=== PATIENT | female | born 1990 | race Caucasian/White ===

== ENCOUNTER 2016-07-22 06:42 | Emergency (ER) | payer BC ==
[2016-07-22 06:59] VITALS: TEMP 97.9
--- NOTE | 2016-07-22 07:04 | ED.PDOC ---
History of Present Illness - General Chief Complaint: Abdominal Pain Stated Complaint: spotting, 12 wks gestation Time Seen by Provider: 07/22/16 07:02 Source: patient Exam Limitations: no limitations - History of Present Illness Initial Comments: Ms. Susana Echevarria 26 y/o Ab3 presently 12 w EGA [id number] stated that she started having intermittent lower abdominal cramps this am with vaginal spotting.She had her initial care in [place] and moved back here in [place] has an Ob appointment on 07/26/16 in [place], [place]. Timing/Duration: this morning Quality: moderate, cramping, intermittent Onset Location: suprapubic Radiation: none Activites at Onset: physical activity Prior abdominal problems: none Sexual intercourse history: single partner Improving Factors: rest Worsening Factors: nothing Allergies/Adverse Reactions: Allergies NO KNOWN ALLERGY Allergy (Verified 06/17/15 01:19) Home Medications: Ambulatory Orders Humalog See Protocol SUBCU DAILY 06/03/14 Promethazine Tab [Phenergan Tablet] 25 mg PO Q6H #20 tab 06/16/15 Cephalexin [Keflex] 500 mg PO BID #20 cap 06/17/15 Novolin R 15 units SUBCU BID 06/17/15 Multivit-Min W/Fe-FA [Pre-Gregor Formula] 1 tab PO DAILY 06/17/15 Promethazine HCl 25 mg PO Q6HRS PRN #30 tab 07/22/16 Review of Systems - Review of Systems Constitutional: States: no symptoms reported EENTM: States: no symptoms reported Respiratory: States: no symptoms reported Cardiology: States: no symptoms reported Gastrointestinal/Abdominal: States: see HPI Genitourinary: States: no symptoms reported Musculoskeletal: States: no symptoms reported Skin: States: no symptoms reported Neurological: States: no symptoms reported Endocrine: States: no symptoms reported Hematologic/Lymphatic: States: no symptoms reported Past Medical History (General) - Patient Medical History Hx Seizures: No Hx Stroke: No Hx Dementia: No Hx Asthma: No Hx of COPD: No Hx Cardiac Disorders: No Hx Congestive Heart Failure: No Hx Pacemaker: No Hx Hypertension: No Hx Thyroid Disease: No Hx Diabetes: Yes Hx Gastroesophageal Reflux: No Hx Renal Disease: No Hx Cancer: No Hx of HIV: No Hx Hepatitis C: No Hx MRSA: No MRSA Source:: Wound Surgical History: cholecystectomy, other - c section - Vaccination History Hx Tetanus, Diphtheria Vaccination: Yes Hx Influenza Vaccination: No Hx Pneumococcal Vaccination: No Immunizations Up to Date: Yes - Social History Hx Tobacco Use: No Hx Chewing Tobacco Use: No Hx Alcohol Use: No Hx Substance Use: No Hx Substance Use Treatment: No Hx Depression: No Hx Physical Abuse: No Hx Emotional Abuse: No Hx Suspected Abuse: No - Activities of Daily Living Patient Lives Alone: No - family - Female History Patient is a Female of Child Bearing Age (10 -59 yrs old): Yes Hx Last Menstrual Period: 05/06/16 Patient : Yes Expected Date of Delivery:: 02/16/17 Hx Gestational Age: 11 - Triage Comment ED Triage Comment: 5th with 1 living child Family Medical History - Family History Father Family History: Unknown Name: Guillermo Loja Age (years): 52 Living Status: Still Living Hx Family Asthma: Yes - Mother Hx Family Congestive Heart Failure: No Hx Family Hypertension: No Hx Family Stroke: No Hx Cardiac Disease: No Hx Family Diabetes: Yes - Pt. Hx Family Cancer: No Hx Family;Other: colon cancer-mom Physical Exam - Physical Exam General Appearance: Alert, Comfortable, No apparent distress Eyes, Ears, Nose, Throat Exam: PERRL/EOMI, normal ENT inspection, TMs normal, pharynx normal Neck: non-tender, supple, normal inspection Cardiovascular/Respiratory: regular rate, rhythm, no M/R/G, normal peripheral pulses, normal breath sounds Gastrointestinal/Abdominal: normal bowel sounds, non tender, soft, no organomegaly Pelvic Exam: external exam normal, speculum exam normal, no cerv. motion tender , other - no bleeding noted cervical os ,cervix closed Back Exam: normal inspection, no CVA tenderness Extremity: normal range of motion, non-tender, normal inspection Neurologic: alert, normal mood/affect, oriented x 3 Skin Exam: normal color, warm/dry Lymphatic: no adenopathy Progress - Results/Orders Results/Orders: Laboratory Results WBC 6.8 K/mm3 (4.8-10.8) 07/22/16 07:35 RBC 4.67 M/mm3 (4.20-5.40) 07/22/16 07:35 Hgb 13.8 gm/dL (12.0-16.0) 07/22/16 07:35 Hct 41.7 % (36.0-47.0) 07/22/16 07:35 MCV 89.4 fl (81.0-99.0) 07/22/16 07:35 MCH 29.6 pg (27.0-31.0) 07/22/16 07:35 MCHC 33.1 g/dL (33.0-37.0) 07/22/16 07:35 RDW 13.9 % (11.5-14.5) 07/22/16 07:35 Plt Count 188 K/mm3 (130-400) 07/22/16 07:35 MPV 9.0 fl (7.40-10.4) 07/22/16 07:35 Absolute Neuts (auto) 4.70 K/uL (1.8-6.8) 07/22/16 07:35 Absolute Lymphs (auto) 1.30 K/uL (1.0-3.4) 07/22/16 07:35 Absolute Monos (auto) 0.60 K/uL (0.2-0.8) 07/22/16 07:35 Absolute Eos (auto) 0.20 K/uL (0.0-0.4) 07/22/16 07:35 Absolute Basos (auto) 0.00 K/uL (0.0-0.1) 07/22/16 07:35 Neutrophils % 69.1 % (42.0-78.0) 07/22/16 07:35 Lymphocytes % 18.8 % (20.0-50.0) L 07/22/16 07:35 Monocytes % 8.3 % (2.0-9.0) 07/22/16 07:35 Eosinophils % 3.2 % (1.0-5.0) 07/22/16 07:35 Basophils % 0.6 % (0.0-2.0) 07/22/16 07:35 Sodium 135 mmol/L (135-145) 07/22/16 07:35 Potassium 3.9 mmol/L (3.6-5.0) 07/22/16 07:35 Chloride 104 mmol/L (101-111) 07/22/16 07:35 Carbon Dioxide 22 mmol/L (21-31) 07/22/16 07:35 Anion Gap 12.9 (12-18) 07/22/16 07:35 BUN 13 mg/dL (7-18) 07/22/16 07:35 Creatinine < 0.40 mg/dL (0.6-1.3) L 07/22/16 07:35 BUN/Creatinine Ratio 32.0 (10-20) H 07/22/16 07:35 Random Glucose 86 mg/dL (70-105) 07/22/16 07:35 Serum Osmolality 269.5 mOsm/L (275-295) L 07/22/16 07:35 Calcium 8.7 mg/dL (8.4-10.2) 07/22/16 07:35 Beta HCG, Quant 03464.0 mIU/mL (0-4.9) H 07/22/16 07:35 Urine Color Yellow (Yellow) 07/22/16 07:48 Urine Appearance Sl cloudy (Clear) 07/22/16 07:48 Urine pH 6.0 (4.5-7.8) 07/22/16 07:48 Ur Specific [place] 1.020 (1.005-1.030) 07/22/16 07:48 Urine Protein 100 mg/dL H 07/22/16 07:48 Urine Glucose (UA) 500 mg/dL (Negative) H 07/22/16 07:48 Urine Ketones Trace mg/dL (NEGATIVE) 07/22/16 07:48 Urine Blood Small (Negative) H 07/22/16 07:48 Urine Nitrite Negative 07/22/16 07:48 Urine Bilirubin Negative (NEGATIVE) 07/22/16 07:48 Urine Urobilinogen 0.2 mg/dL (0.2-1.0) 07/22/16 07:48 Ur Leukocyte Esterase Negative (Negative) 07/22/16 07:48 Urine RBC 0-1 /hpf 07/22/16 07:48 Urine WBC 0 /hpf 07/22/16 07:48 Ur Epithelial Cells 3-5 /hpf 07/22/16 07:48 Urine Bacteria 0 07/22/16 07:48 Patient ABO/Rh A POSITIVE 07/22/16 07:35 Departure - Departure Clinical Impression: Abdominal cramps, Time of Disposition: 08:58 Disposition: Discharge to Home or Self Care Condition: Good Departure Forms: ED Discharge - Pt. Copy, Patient Portal Self Enrollment Instructions: Working During : Staying Healthy and Managing Stress, DI for Threatened , DI for Abdominal Pain -- Early Prescriptions: Promethazine HCl 25 mg PO Q6HRS PRN #30 tab PRN Reason: Abdominal Cramping Home Medications: Ambulatory Orders Humalog See Protocol SUBCU DAILY 06/03/14 Promethazine Tab [Phenergan Tablet] 25 mg PO Q6H #20 tab 06/16/15 Cephalexin [Keflex] 500 mg PO BID #20 cap 06/17/15 Novolin R 15 units SUBCU BID 06/17/15 Multivit-Min W/Fe-FA [Pre-Gregor Formula] 1 tab PO DAILY 06/17/15 Promethazine HCl 25 mg PO Q6HRS PRN #30 tab 07/22/16 Additional Instructions: NEED TO CALL UP OB IF SYMPTOMS WORSEN;EXCUSE FROM WORK 07/21-07/2016;RETURN TO WORK 07/24/2016.
[2016-07-22] MEDS ORDERED: SODIUM CHLORIDE 0.9% 1000ML 1,000 ML IVS ONE (07:05)
[2016-07-22] MEDS ORDERED: PROMETHAZINE HCL INJ 25 MG/ML VIAL IM ONE (07:44)
[2016-07-22 08:52] VITALS: BP 115/76; O2SAT 97
== END 2016-07-22 09:12 | disposition home or self-care (01) ==
LOC: ER 06:42
DX: O26.851 Spotting complicating pregnancy, first trimester (principal); R10.30 Lower abdominal pain, unspecified; Z3A.12 12 weeks gestation of pregnancy; O24.311 Unspecified pre-existing diabetes mellitus in pregnancy, first trimester; E11.9 Type 2 diabetes mellitus without complications; Z79.4 Long term (current) use of insulin; Z79.899 Other long term (current) drug therapy
CPT/HCPCS: 36415; 80048; 81001; 84702; 85025; 86900; 86901; J2550

== ENCOUNTER 2017-02-08 19:46 | Emergency (ER) | payer MEDICAID, OTHER ==
[2017-02-08] MEDS ORDERED: KETOROLAC TROMETHAMINE INJ 30 MG/ML VIAL IV ONE (20:03)
[2017-02-08] MEDS ORDERED: ONDANSETRON INJ 4 MG/2 ML VIAL IV ONE (20:03)
[2017-02-08] MEDS ORDERED: SODIUM CHLORIDE 0.9% 1000ML 1,000 ML IVS ONE (20:03)
--- NOTE | 2017-02-08 20:07 | ED.PDOC ---
History of Present Illness - General Chief Complaint: Problem Stated Complaint: left flank pain Time Seen by Provider: 02/08/17 20:03 Source: patient, RN notes reviewed, Vital Signs reviewed, family - Mother Exam Limitations: no limitations - History of Present Illness Initial Comments: Patient comes in with c/o L low back pain that radiates around to her groin that started ~ 30 minutes prior to arrival. + nausea and vomiting. Lots of urinary pressure but difficulty urinating. She was discharged for the hospital in [place] on 02/05/17, after episode of pancreatitis, DKA and UTI. She was on IV antibiotics in the hospital but was not discharged with any medications. Reports she had been feeling fine until ~19:30 today when she went to urinate and had a sudden onset of pain, nausea and vomiting. Timing/Duration: just prior to arrival Quality: severe Onset Location: left flank Radiation: groin Activites at Onset: other - urinating Sexual intercourse history: single partner - 1 month post- Improving Factors: nothing Worsening Factors: nothing Associated Symptoms: dysuria, lower back pain, nausea/vomiting, polyuria, urinary frequency Allergies/Adverse Reactions: Allergies NO KNOWN ALLERGY Allergy (Verified 06/17/15 01:19) Home Medications: Ambulatory Orders Humalog See Protocol SUBCU DAILY 06/03/14 Promethazine Tab [Phenergan Tablet] 25 mg PO Q6H #20 tab 06/16/15 Cephalexin [Keflex] 500 mg PO BID #20 cap 06/17/15 Novolin R 15 units SUBCU BID 06/17/15 Multivit-Min W/Fe-FA [Pre- Formula] 1 tab PO DAILY 06/17/15 Promethazine HCl 25 mg PO Q6HRS PRN #30 tab 07/22/16 Acetamin W/Cod #3 Tab [Tylenol w/CODEINE #3] 1 - 2 ea PO Q6HR PRN #15 tab Ondansetron Odt [Zofran ODT] 8 mg PO Q6HR PRN #15 tab 02/08/17 Review of Systems - Review of Systems Constitutional: States: chills, diaphoresis EENTM: States: no symptoms reported Respiratory: States: no symptoms reported Cardiology: States: no symptoms reported Gastrointestinal/Abdominal: States: abdominal pain - suprapubic, nausea, vomiting. Denies: constipation, diarrhea Genitourinary: States: see HPI, dysuria, frequency, pain Musculoskeletal: States: back pain - L low back Skin: States: no symptoms reported Neurological: States: no symptoms reported All other Systems: No Change from Baseline Past Medical History (General) - Patient Medical History Hx Seizures: No Hx Stroke: No Hx Dementia: No Hx Asthma: No Hx of COPD: No Hx Cardiac Disorders: No Hx Congestive Heart Failure: No Hx Pacemaker: No Hx Hypertension: No Hx Thyroid Disease: No Hx Diabetes: Yes Hx Gastroesophageal Reflux: No Hx Renal Disease: No Hx Cancer: No Hx of HIV: No Hx Hepatitis C: No Hx MRSA: No MRSA Source:: Wound - Vaccination History Hx Tetanus, Diphtheria Vaccination: Yes Hx Influenza Vaccination: No Hx Pneumococcal Vaccination: No - Social History Hx Tobacco Use: No Hx Chewing Tobacco Use: No Hx Alcohol Use: No Hx Substance Use: No Hx Substance Use Treatment: No Hx Depression: No Hx Physical Abuse: No Hx Emotional Abuse: No Hx Suspected Abuse: No - Female History Hx Last Menstrual Period: 05/06/16 Patient : Yes Expected Date of Delivery:: 02/16/17 Hx Gestational Age: 11 Family Medical History - Family History Father Family History: Unknown Name: Guillermo Loja Age (years): 52 Living Status: Still Living Hx Family Asthma: Yes - Mother Hx Family Congestive Heart Failure: No Hx Family Hypertension: No Hx Family Stroke: No Hx Cardiac Disease: No Hx Family Diabetes: Yes - Pt. Hx Family Cancer: No Hx Family;Other: colon cancer-mom Physical Exam - Physical Exam General Appearance: Alert, Ill Appearing, Well Developed, Well Groomed, Well Hydrated, Well Nourished Neck: supple Cardiovascular/Respiratory: regular rate, rhythm, no M/R/G, normal breath sounds , no respiratory distress Gastrointestinal/Abdominal: normal bowel sounds, soft, no organomegaly, no pulsatile mass, tenderness - suprapubic tenderness s/o rebound Extremity: non-tender, normal inspection Neurologic: alert, normal mood/affect, oriented x 3 Skin Exam: normal color, warm/dry Comments: Vital Signs 02/08/17 20:00 Temperature 98.1 F Pulse Rate [ 118 H Left] Respiratory 22 Rate Blood Pressure 143/82 [Left Arm] O2 Sat by Pulse 99 Oximetry Progress - Progress Progress: 02/08/17 20:[address] scans @ [place], will try and get reports. 02/08/17 20:51 Patient reports she is feeling much better after Toradol and Zofran. Symptoms and labs suggest a kidney stone. Still awaiting CT reports from recent hospitalization. 02/08/17 21:[address] unable to get CT reports from [place]. Discussed with patient and her mother. Evaluation is classic for renal colic. Will forgo additional imaging and treat symptomatically. Patient is in agreement with plan. Will d/c home with Rx for Tyl #3 and Zofran w/ urine strainer. Discussed ER warnings for worsening/uncontrolled symptoms. If does not pass a stone w/in 2 weeks will need follow up with Urologist. - Results/Orders Results/Orders: Laboratory Tests 02/08/17 02/08/17 02/08/17 19:55 19:55 19:55 WBC 8.1 RBC 3.89 L Hgb 10.8 L Hct 33.4 L MCV 85.8 MCH 27.7 MCHC 32.4 L RDW 17.6 H Plt Count 490 H MPV 8.2 Absolute Neuts (auto) 3.80 Absolute Lymphs (auto) 3.50 H Absolute Monos (auto) 0.30 Absolute Eos (auto) 0.40 Absolute Basos (auto) 0.10 Neutrophils % 47.0 Lymphocytes % 42.7 Monocytes % 4.2 Eosinophils % 4.7 Basophils % 1.4 Sodium 136 Potassium 4.1 Chloride 101 Carbon Dioxide 23 Anion Gap 16.1 BUN 20 H Creatinine 1.03 BUN/Creatinine Ratio 19.4 Random Glucose 288 H Serum Osmolality 285.1 Calcium 9.1 Total Bilirubin 0.2 AST 28 ALT 18 Alkaline Phosphatase 222 H Serum Total Protein 8.2 Albumin 3.3 Globulin 4.9 H Albumin/Globulin Ratio 0.7 L Amylase Lipase Urine Color Yellow Urine Appearance Clear Urine pH 7.0 Ur Specific Mona 1.015 Urine Protein 100 H Urine Glucose (UA) 500 H Urine Ketones Negative Urine Blood Small H Urine Nitrite Negative Urine Bilirubin Negative Urine Urobilinogen 0.2 Ur Leukocyte Esterase Negative Urine RBC 1-3 Urine WBC 0-1 Ur Epithelial Cells 3-5 Urine Bacteria Rare Serum Ketones 02/08/17 19:55 WBC RBC Hgb Hct MCV MCH MCHC RDW Plt Count MPV Absolute Neuts (auto) Absolute Lymphs (auto) Absolute Monos (auto) Absolute Eos (auto) Absolute Basos (auto) Neutrophils % Lymphocytes % Monocytes % Eosinophils % Basophils % Sodium Potassium Chloride Carbon Dioxide Anion Gap BUN Creatinine BUN/Creatinine Ratio Random Glucose Serum Osmolality Calcium Total Bilirubin AST ALT Alkaline Phosphatase Serum Total Protein Albumin Globulin Albumin/Globulin Ratio Amylase 116 H Lipase 281 H Urine Color Urine Appearance Urine pH Ur Specific Mona Urine Protein Urine Glucose (UA) Urine Ketones Urine Blood Urine Nitrite Urine Bilirubin Urine Urobilinogen Ur Leukocyte Esterase Urine RBC Urine WBC Ur Epithelial Cells Urine Bacteria Serum Ketones Negative Lipase improved from labs on 02/05/17 - was 352 Departure - Departure Clinical Impression: Renal colic on left side Time of Disposition: 21:34 Disposition: Discharge to Home or Self Care Condition: Good Departure Forms: ED Discharge - Pt. Copy, Patient Portal Self Enrollment Instructions: DI for Kidney Stones Diet: resume usual diet - Increase water intake Activity: ambulate only with walker Referrals: Herminio Khan MD [Primary Care Provider] - 1-2 Weeks Prescriptions: Acetamin W/Cod #3 Tab [Tylenol w/CODEINE #3] 1 - 2 ea PO Q6HR PRN #15 tab PRN Reason: Moderate To Severe Pain Ondansetron Odt [Zofran ODT] 8 mg PO Q6HR PRN #15 tab PRN Reason: Nausea/Vomiting Home Medications: Ambulatory Orders Humalog See Protocol SUBCU DAILY 06/03/14 Promethazine Tab [Phenergan Tablet] 25 mg PO Q6H #20 tab 06/16/15 Cephalexin [Keflex] 500 mg PO BID #20 cap 06/17/15 Novolin R 15 units SUBCU BID 06/17/15 Multivit-Min W/Fe-FA [Pre-Gregor Formula] 1 tab PO DAILY 06/17/15 Promethazine HCl 25 mg PO Q6HRS PRN #30 tab 07/22/16 Acetamin W/Cod #3 Tab [Tylenol w/CODEINE #3] 1 - 2 ea PO Q6HR PRN #15 tab Ondansetron Odt [Zofran ODT] 8 mg PO Q6HR PRN #15 tab 02/08/17
[2017-02-08 20:09] VITALS: TEMP 98.1; O2SAT 99
[2017-02-08] MEDS ORDERED: ONDANSETRON ODT (ER DISP) 8 MG TAB PO ONE (21:30)
[2017-02-08] MEDS ORDERED: ACETAMINOPHEN W/COD #3 TAB (ER Disp) PO ONE (21:30)
[2017-02-08 21:55] VITALS: BP 152/99
== END 2017-02-08 21:56 | disposition home or self-care (01) ==
LOC: ER 19:46
DX: N23 Unspecified renal colic (principal); E11.9 Type 2 diabetes mellitus without complications; Z79.4 Long term (current) use of insulin; Z79.899 Other long term (current) drug therapy
CPT/HCPCS: 36415; 80053; 81001; 82009; 82150; 83690; 85025; J1885; J2405; J7030

== ENCOUNTER 2017-04-26 06:31 | Emergency (ER) | payer SELFPAY ==
[2017-04-26] MEDS ORDERED: PROMETHAZINE HCL INJ 25 MG/ML VIAL IM ONE (06:57)
[2017-04-26] MEDS ORDERED: KETOROLAC TROMETHAMINE INJ 60 MG/2 ML VIAL IM ONE (06:57)
--- NOTE | 2017-04-26 06:57 | ED.PDOC ---
History of Present Illness - General Source: patient Exam Limitations: no limitations Additional Information: C/O R TEMPORAL GARCIA FOR PAST 1 WEEK. HAS BEEN INTERMITTENT AND RESPONDED TO EXCEDRIN BUT LAST NIGHT DID NOT GET BETTER. NO MIGRAINE HX. - History of Present Illness Timing/Duration: constant Severity: moderate Improving Factors: nothing Worsening Factors: nothing Associated Symptoms: nausea/vomiting <Facundo Sahu - Last Filed: 04/26/17 07:01> <Surya Obregon - Last Filed: 04/26/17 12:34> - General Chief Complaint: Headache Stated Complaint: headache Time Seen by Provider: 04/26/17 06:52 - History of Present Illness Allergies/Adverse Reactions: Allergies NO KNOWN ALLERGY Allergy (Verified 04/26/17 06:45) Home Medications: Ambulatory Orders Humalog See Protocol SUBCU DAILY 06/03/14 Promethazine Tab [Phenergan Tablet] 25 mg PO Q6H #20 tab 06/16/15 Cephalexin [Keflex] 500 mg PO BID #20 cap 06/17/15 Novolin R 15 units SUBCU BID 06/17/15 Multivit-Min W/Fe-FA [Pre-Gregor Formula] 1 tab PO DAILY 06/17/15 Promethazine HCl 25 mg PO Q6HRS PRN #30 tab 07/22/16 Acetamin W/Cod #3 Tab [Tylenol w/CODEINE #3] 1 - 2 ea PO Q6HR PRN #15 tab Ondansetron Odt [Zofran ODT] 8 mg PO Q6HR PRN #15 tab 02/08/17 Review of Systems - Review of Systems Constitutional: States: other - NO TRAUMA. Denies: chills, fever EENTM: Denies: blurred vision, ear pain, throat pain Respiratory: Denies: cough, short of breath Cardiology: Denies: chest pain, palpitations Gastrointestinal/Abdominal: Denies: abdominal pain, nausea, vomiting Genitourinary: States: no symptoms reported Musculoskeletal: Denies: back pain, neck pain Skin: States: no symptoms reported Neurological: States: headache. Denies: numbness, tingling, weakness Endocrine: States: no symptoms reported Hematologic/Lymphatic: States: no symptoms reported <Facundo Sahu - Last Filed: 04/26/17 07:01> Past Medical History (General) - Patient Medical History Hx Seizures: No Hx Stroke: No Hx Dementia: No Hx Asthma: No Hx of COPD: No Hx Cardiac Disorders: No Hx Congestive Heart Failure: No Hx Pacemaker: No Hx Hypertension: No Hx Thyroid Disease: No Hx Diabetes: Yes Hx Gastroesophageal Reflux: No Hx Renal Disease: No Hx Cancer: No Hx of HIV: No Hx Hepatitis C: No Hx MRSA: No MRSA Source:: Wound - Vaccination History Hx Tetanus, Diphtheria Vaccination: Yes Hx Influenza Vaccination: No Hx Pneumococcal Vaccination: No - Social History Hx Tobacco Use: No Hx Chewing Tobacco Use: No Hx Alcohol Use: No Hx Substance Use: No Hx Substance Use Treatment: No Hx Depression: No Hx Physical Abuse: No Hx Emotional Abuse: No Hx Suspected Abuse: No - Female History Hx Last Menstrual Period: 05/06/16 Patient : No Expected Date of Delivery:: 02/16/17 Hx Gestational Age: 11 <Facundo Sahu - Last Filed: 04/26/17 07:01> Family Medical History - Family History Father Family History: Unknown Name: Guillermo Loja Age (years): 52 Living Status: Still Living Hx Family Asthma: Yes - Mother Hx Family Congestive Heart Failure: No Hx Family Hypertension: No Hx Family Stroke: No Hx Cardiac Disease: No Hx Family Diabetes: Yes - Pt. Hx Family Cancer: No Hx Family;Other: colon cancer-mom <Facundo Sahu - Last Filed: 04/26/17 07:01> Physical Exam - Physical Exam General Appearance: Alert, No apparent distress Eye Exam: bilateral normal Ears, Nose, Throat: normal ENT inspection, normal pharynx Neck: non-tender, full range of motion, supple Respiratory: lungs clear, normal breath sounds Cardiovascular/Chest: regular rate, rhythm, no murmur Gastrointestinal/Abdominal: normal bowel sounds, non tender, soft, no organomegaly Back Exam: normal inspection, no CVA tenderness Extremity: normal range of motion, non-tender Neurologic: no motor/sensory deficits, alert Skin Exam: normal color, warm/dry Lymphatic: no adenopathy <Facundo Sahu - Last Filed: 04/26/17 07:01> Progress - Progress Progress: 04/26/17 08:03 PT REPORTS IMPROVEMENT IN NAUSEA AFTER PHENERGAN BUT REPORTS NO IMPROVEMENT IN HEADACHE AFTER IM TORADOL. WHEN I INQUIRED ABOUT A HISTORY OF HTN, PT ADDITIONALLY GIVES HISTORY OF RECENT PRE-ECLAMPSIA DURING AND AFTER CHILDBIRTH IN DECEMBER. PT REPORTS THAT LABS WERE NORMAL DURING HER INITIAL FOLLOW UP AFTER DELIVERY BUT STATES SHE HAS SINCE MOVED AND HAS NOT SEEN PHYSICIAN AGAIN. PT IS NOT ON ANTIHYPERTENSIVE AND IS NOT MONITORING BP AT HOME. DECISION MADE AT THIS TIME TO ORDER LABS,CT HEAD, AND IV MEDICATION FOR BP AND HEADACHE. REPEAT BP WAS 157/101 04/26/17 10:00 PT REPORTS SOME IMPROVEMENT IN HEADACHE. CT FINDINGS DISCUSSED. BP NOW 130/88 AFTER IV HYDRALAZINE. WILL ORDER MRI. 04/26/17 11:44 MRI FINDINGS DISCUSSED WITH PATIENT. SHE AGREES WITH PLAN TO TRANSFER TO [facility] FOR FURTHER MANAGEMENT. 04/26/17 12:05 PT WANTING TO SIGN OUT AMA, DUE TO A COURT DATE IN [place] TOMORROW. I ADVISED PATIENT THAT THIS IS A SERIOUS MATTER THAT COULD RESULT IN OR PERMANENT DISABILITY IF NOT TREATED. PT STATES SHE WILL CALL HER MOTHER TO DISCUSS. - Results/Orders Results/Orders: 04/26/17 07:09 UA [URINALYSIS] Stat 04/26/17 08:00 Telemetry .ONCE Sodium Chloride 0.9% (Flush) [Saline Flush Syringe] 10 ml IV PRN PRN EKG STAT 04/26/17 09:48 Brain w/oContrast [MRI] Stat MRA Head and/or Neck [MRI] Stat 04/26/17 09:49 Hold Metformin x 48Hrs [id number] 04/27/17 08:00 EKG STAT Laboratory Results - last 24 hr 04/26/17 04/26/17 04/26/17 07:15 08:30 08:30 WBC 7.2 RBC 4.73 Hgb 13.3 Hct 39.6 MCV 83.8 MCH 28.1 MCHC 33.6 RDW 14.2 Plt Count 284 MPV 8.2 Absolute Neuts (auto) 4.00 Absolute Lymphs (auto) 2.50 Absolute Monos (auto) 0.40 Absolute Eos (auto) 0.20 Absolute Basos (auto) 0.10 Neutrophils % 55.2 Lymphocytes % 35.2 Monocytes % 5.8 Eosinophils % 3.0 Basophils % 0.8 PT INR PTT (SP) Sodium 137 Potassium 3.9 Chloride 105 Carbon Dioxide 24 Anion Gap 11.9 L BUN 17 Creatinine 0.61 BUN/Creatinine Ratio 27.9 H POC Glucose 88 Random Glucose 136 H Serum Osmolality 277.4 Calcium 9.0 Total Bilirubin 0.2 AST 40 ALT 25 Alkaline Phosphatase 97 Creatine Kinase 42 CK-MB (CK-2) 1.4 CK-MB (CK-2) % Not Reportable Troponin I < 0.02 Serum Total Protein 7.9 Albumin 3.7 Globulin 4.2 H Albumin/Globulin Ratio 0.9 L Serum HCG, Qual 04/26/17 04/26/17 08:30 08:30 WBC RBC Hgb Hct MCV MCH MCHC RDW Plt Count MPV Absolute Neuts (auto) Absolute Lymphs (auto) Absolute Monos (auto) Absolute Eos (auto) Absolute Basos (auto) Neutrophils % Lymphocytes % Monocytes % Eosinophils % Basophils % PT 9.6 INR 0.850 PTT (SP) 33.1 Sodium Potassium Chloride Carbon Dioxide Anion Gap BUN Creatinine BUN/Creatinine Ratio POC Glucose Random Glucose Serum Osmolality Calcium Total Bilirubin AST ALT Alkaline Phosphatase Creatine Kinase CK-MB (CK-2) CK-MB (CK-2) % Troponin I Serum Total Protein Albumin Globulin Albumin/Globulin Ratio Serum HCG, Qual Negative - EKG/XRAY/CT EKG: Sinus - @92BPM, NL INTERVALS, RAD, no ST T wave changes - NO OLD EKG FOR COMPARISON <Surya Obreogn - Last Filed: 04/26/17 12:34> Departure <Facundo Sahu - Last Filed: 04/26/17 07:01> - Departure Time of Disposition: 12:08 <Surya Obregon - Last Filed: 04/26/17 12:34> - Departure Clinical Impression: Hypertensive encephalopathy syndrome, Uncontrolled hypertension Disposition: Transfer to Hospital Condition: Fair Departure Forms: ED Discharge - Pt. Copy, Patient Portal Self Enrollment Instructions: DI for Headache Referrals: Herminio Khan MD [Primary Care Provider] - 1-2 Weeks Home Medications: Ambulatory Orders Humalog See Protocol SUBCU DAILY 06/03/14 Promethazine Tab [Phenergan Tablet] 25 mg PO Q6H #20 tab 06/16/15 Cephalexin [Keflex] 500 mg PO BID #20 cap 06/17/15 Novolin R 15 units SUBCU BID 06/17/15 Multivit-Min W/Fe-FA [Pre-Gregor Formula] 1 tab PO DAILY 06/17/15 Promethazine HCl 25 mg PO Q6HRS PRN #30 tab 07/22/16 Acetamin W/Cod #3 Tab [Tylenol w/CODEINE #3] 1 - 2 ea PO Q6HR PRN #15 tab Ondansetron Odt [Zofran ODT] 8 mg PO Q6HR PRN #15 tab 02/08/17 Transfer to Outside Facility - Transfer Information Accepting Provider:: DR. POLLARD Accepting Facility: [facility] Reason for Transfer: required specialist not available - NEUROLOGIST <Surya Obregon - Last Filed: 04/26/17 12:34>
[2017-04-26] MEDS ORDERED: SODIUM CHLORIDE 0.9% (FLUSH) 10 ML SYG IV PRN (08:00)
[2017-04-26] MEDS ORDERED: hydrALAZINE HCl 20 MG/ML VIAL IV ONE (08:01)
[2017-04-26] MEDS ORDERED: METOCLOPRAMIDE HCL INJ 10 MG/2 ML VIAL IV ONE (08:01)
[2017-04-26] MEDS ORDERED: SODIUM CHLORIDE 0.9% 1000ML 1,000 ML IVS ONE (08:02)
[2017-04-26] MEDS ORDERED: diphenhydrAMINE HCL 50 MG/ML VIAL IV ONE (08:02)
--- NOTE | 2017-04-26 09:50 | CT ---
EXAM DESCRIPTION: Head CLINICAL HISTORY: 27-year-old, female, headache, hypertension. COMPARISON: None available TECHNIQUE: Multiple axial images of the head without contrast.tab FINDINGS: There is no CT evidence of intracranial hemorrhage, mass effect, or acute cortical infarction. There is mild symmetric prominence of the lateral ventricles without transependymal CSF flow. Sulcation pattern is within normal limits. There is decreased attenuation within the martínez-white junction of the right parietal lobe. There are no abnormal extra-axial fluid collections. No depressed skull fractures. The visualized paranasal sinuses and the mastoids are clear. IMPRESSION: Decreased attenuation within the martínez-white junction of the right parietal lobe. This may be secondary to acute ischemia from right MCA territory distribution versus other processes causing edema in this region. Further evaluation with brain MRI is recommended. Findings were discovered at 0940 hours and reported to Dr. Surya Obergon via telephone by myself at 0945 hours on 04/26/2017. Electronically signed by: Gutierrez Thomas MD 04/26/2017 9:49 AM [facility]
--- NOTE | 2017-04-26 11:50 | MRI ---
EXAM DESCRIPTION: Brain w/oContrast. MRI CLINICAL HISTORY: Abnormal CT findings today, headache x 1 week right more than left. Preeclampsia during recent . Significant hypertension today. COMPARISON: Noncontrast MRA of the brain on this visit. TECHNIQUE: Multiplanar, multiple conventional MRI sequences without contrast. FINDINGS: Bilateral foci of bright FLAIR and T2-weighted signal in the martínez-white matter junctions of the occipital lobes slightly more prominent on the left. Bilaterally symmetric smaller lesions in the parietal lobes. Bilaterally symmetric frontal lobe lesions are smaller than the parietal lobe lesions. No hemorrhage, no mass effect. Normal signal in the bilateral basal ganglia. No hemorrhage, no cerebral edema, no mass-effect. Normal signal in the brainstem and cerebellar hemispheres. No hemorrhage, no cerebral edema, no mass-effect. Concordance of the diffusion and non-diffusion sequences with no diffusion restriction. Cortical sulci, ventricles, and other CSF spaces, and the subdural spaces are normally configured for patients age. No effacement or displacement. No midline shift. No extra-axial hemorrhage. Normal flow signal void in the venous sinuses. IACs are symmetric bilaterally. Minimal edema/fluid in the gravity dependent cells of the right mastoid air cells. Left side is unremarkable. Contour of the cerebellopontine angles is unremarkable. Pituitary gland occupies most of the sella. Base of the cerebellar tonsils is tented inferiorly and approximately 2 mm below the foramen magnum. Mucosal thickening in the ethmoid air cells and right maxillary antrum; otherwise unremarkable paranasal sinuses. The bony calvarium is intact. IMPRESSION: 1. Bilateral edema like lesions in the martínez-white matter junctions in the occipital lobes more prominent in the lesions in the parietal lobes which are more prominent than the lesions in the frontal lobes. 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 Another less likely etiologies would be hypoglycemia, acute bilateral diffuse cerebral ischemia/infarction (not likely with normal diffusion study), thrombotic microangiopathy disease, and vasculitis (not seen on MRA study). No intra-axial or extra-axial hemorrhage mass effect or midline shift. 2. No lesions in the basal ganglia or brainstem or cerebellar hemispheres. Normal noncontrast diffusion study, with ischemia/infarction very unlikely. 3. Mild chronic paranasal sinusitis. Right mastoid sinusitis. CRITICAL COMMUNICATION: The critical value was discussed directly by phone with Dr. Surya Obregon at approximately 1125 hours, on April 26, 2017. Electronically signed by: Ramesh Nixon MD 04/26/2017 11:49 AM [facility]
--- NOTE | 2017-04-26 12:05 | MRI ---
EXAM DESCRIPTION: MRA Head and/or Neck: MRI. CLINICAL HISTORY: abnormal CT findings, headache x1 week, significant hypertension today. Preeclampsia during recent . COMPARISON: None. TECHNIQUE: 3D [id number] thin-section axial acquisitions through the base of the skull and the tribe Talavera. Non contrast. MIP reconstructions. FINDINGS: Minimal narrowing of the distal right vertebral artery beginning at the level of the base of the right cerebellar hemisphere anteriorly joins the left vertebral artery to form the basilar artery. No definite thrombus or mass effect. Smooth borders of the vessel. Left vertebral artery is slightly dominant. Vessels originating from the vertebral arteries and basilar artery are unremarkable. Normal bifurcation of the basilar artery. Bilateral posterior communicating arteries are present. Proximal left posterior cerebral artery is larger than the contralateral right artery. No aneurysm, no stenosis, no mass effect, no vasculitis. Bilateral ICAs appear symmetric and at the base of the skull and intracranial. Bilateral proximal anterior cerebral and middle cerebral arteries are symmetric in major branches originating from these vessels are unremarkable. Bilateral posterior communicating arteries are visualized. No aneurysms, no stenoses, no mass effect, no vasculitis. Cavum septum pellucidum and cavum septum vergae which is a normal variant of the midline brain. IMPRESSION: 1. Narrowing of the distal right vertebral artery which is interpreted to be clinically significant and not due to vasculitis, thrombosis, or mass effect. Otherwise unremarkable study. 2. 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 CRITICAL COMMUNICATION: The critical value was discussed directly by phone with Dr. Surya Obregon at approximately 1125 hours, on April 26, 2017. Electronically signed by: Ramesh Nixon MD 04/26/2017 12:03 PM [facility]
[2017-04-26 14:41] VITALS: BP 153/96; TEMP 97.3; O2SAT 97
== END 2017-04-26 14:20 | disposition short-term general hospital (02) ==
LOC: ER 06:31
DX: I67.4 Hypertensive encephalopathy (principal); E11.9 Type 2 diabetes mellitus without complications; Z79.4 Long term (current) use of insulin; Z79.899 Other long term (current) drug therapy
CPT/HCPCS: 36415; 36416; 70450; 70544; 70551; 80053; 82550; 82553; 82948; 84484; 84703; 85025; 85610; 85730; 93005; J0360; J1200; J1885; J2550; J2765; J7030

== ENCOUNTER 2017-05-18 14:24 | Emergency (ER) | payer SELFPAY ==
[2017-05-18] MEDS ORDERED: METOCLOPRAMIDE HCL INJ 10 MG/2 ML VIAL IV ONE (14:44)
[2017-05-18] MEDS ORDERED: diphenhydrAMINE HCL 50 MG/ML VIAL IV ONE (14:44)
[2017-05-18] MEDS ORDERED: SODIUM CHLORIDE 0.9% 1000ML 1,000 ML IVS ONE (14:44)
[2017-05-18] MEDS ORDERED: KETOROLAC TROMETHAMINE INJ 30 MG/ML VIAL IV ONE (14:44)
[2017-05-18 14:47] VITALS: TEMP 96
[2017-05-18] MEDS ORDERED: METOCLOPRAMIDE HCL INJ 10 MG/2 ML VIAL ONE (15:48)
[2017-05-18] MEDS ORDERED: diphenhydrAMINE HCL 50 MG/ML VIAL ONE (15:48)
[2017-05-18] MEDS ORDERED: KETOROLAC TROMETHAMINE INJ 30 MG/ML VIAL ONE (15:48)
--- NOTE | 2017-05-18 17:05 | ED.PDOC ---
History of Present Illness - General Chief Complaint: Headache Stated Complaint: headache Time Seen by Provider: 05/18/17 14:26 Source: patient, RN notes reviewed, Vital Signs reviewed Additional Information: Migraine GARCIA - right sided. 03/01 pain. No focal neuro deficits. Similar to previous migraine GARCIA> - History of Present Illness Timing/Duration: 24 hours Quality: moderate Head Injury Location: frontal Recent Head Trauma: occasional headaches Improving Factors: nothing Worsening Factors: nothing Associated Symptoms: denies symptoms Allergies/Adverse Reactions: Allergies NO KNOWN ALLERGY Allergy (Verified 04/26/17 06:45) Home Medications: Ambulatory Orders Humalog See Protocol SUBCU DAILY 06/03/14 Promethazine Tab [Phenergan Tablet] 25 mg PO Q6H #20 tab 06/16/15 Cephalexin [Keflex] 500 mg PO BID #20 cap 06/17/15 Novolin R 15 units SUBCU BID 06/17/15 Multivit-Min W/Fe-FA [Pre- Formula] 1 tab PO DAILY 06/17/15 Promethazine HCl 25 mg PO Q6HRS PRN #30 tab 07/22/16 Acetamin W/Cod #3 Tab [Tylenol w/CODEINE #3] 1 - 2 ea PO Q6HR PRN #15 tab Ondansetron Odt [Zofran ODT] 8 mg PO Q6HR PRN #15 tab 02/08/17 Review of Systems - Review of Systems Constitutional: States: no symptoms reported EENTM: States: no symptoms reported, see HPI Respiratory: States: no symptoms reported Cardiology: States: no symptoms reported Gastrointestinal/Abdominal: States: no symptoms reported Genitourinary: States: no symptoms reported Musculoskeletal: States: no symptoms reported Skin: States: no symptoms reported Neurological: States: see HPI, headache Endocrine: States: no symptoms reported Hematologic/Lymphatic: States: no symptoms reported Past Medical History (General) - Patient Medical History Hx Seizures: No Hx Stroke: No Hx Dementia: No Hx Asthma: No Hx of COPD: No Hx Cardiac Disorders: No Hx Congestive Heart Failure: No Hx Pacemaker: No Hx Hypertension: No Hx Thyroid Disease: No Hx Diabetes: Yes Hx Gastroesophageal Reflux: No Hx Renal Disease: No Hx Cancer: No Hx of HIV: No Hx Hepatitis C: No Hx MRSA: No MRSA Source:: Wound Surgical History: other - Vaccination History Hx Tetanus, Diphtheria Vaccination: Yes Hx Influenza Vaccination: No Hx Pneumococcal Vaccination: No - Social History Hx Tobacco Use: No Hx Chewing Tobacco Use: No Hx Alcohol Use: No Hx Substance Use: No Hx Substance Use Treatment: No Hx Depression: No Hx Physical Abuse: No Hx Emotional Abuse: No Hx Suspected Abuse: No - Female History Hx Last Menstrual Period: 05/06/16 Patient : No Expected Date of Delivery:: 02/16/17 Hx Gestational Age: 11 Family Medical History - Family History Father Family History: Unknown Name: Guillermo Loja Age (years): 52 Living Status: Still Living Hx Family Asthma: Yes - Mother Hx Family Congestive Heart Failure: No Hx Family Hypertension: No Hx Family Stroke: No Hx Cardiac Disease: No Hx Family Diabetes: Yes - Pt. 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 Pt stable for d/c home. Departure - Departure Clinical Impression: Migraine Qualifiers: Migraine type: without aura Status migrainosus presence: without status migrainosus Intractability: intractable Qualified Code(s): G43.019 - Migraine without aura, intractable, without status migrainosus Time of Disposition: 17:20 Disposition: Discharge to Home or Self Care Condition: Fair Departure Forms: ED Discharge - Pt. Copy, Patient Portal Self Enrollment Referrals: Herminio Khan MD [Primary Care Provider] - 1-2 Weeks Home Medications: Ambulatory Orders Humalog See Protocol SUBCU DAILY 06/03/14 Promethazine Tab [Phenergan Tablet] 25 mg PO Q6H #20 tab 06/16/15 Cephalexin [Keflex] 500 mg PO BID #20 cap 06/17/15 Novolin R 15 units SUBCU BID 06/17/15 Multivit-Min W/Fe-FA [Pre- Formula] 1 tab PO DAILY 06/17/15 Promethazine HCl 25 mg PO Q6HRS PRN #30 tab 07/22/16 Acetamin W/Cod #3 Tab [Tylenol w/CODEINE #3] 1 - 2 ea PO Q6HR PRN #15 tab Ondansetron Odt [Zofran ODT] 8 mg PO Q6HR PRN #15 tab 02/08/17 Additional Instructions: No work for 48 hours. Rest. Stay well hydrated.
[2017-05-18 17:34] VITALS: BP 133/84; O2SAT 98
== END 2017-05-18 17:28 | disposition home or self-care (01) ==
LOC: ER 14:24
DX: G43.019 Migraine without aura, intractable, without status migrainosus (principal); E11.9 Type 2 diabetes mellitus without complications; Z79.4 Long term (current) use of insulin; Z79.899 Other long term (current) drug therapy
CPT/HCPCS: J1200; J1885; J2765; J7030

== ENCOUNTER 2017-10-10 09:47 | Emergency (ER) | payer OTHER, SELFPAY ==
[2017-10-10] MEDS ORDERED: SODIUM CHLORIDE 0.9% (FLUSH) 10 ML SYG IV PRN (10:35)
[2017-10-10] MEDS ORDERED: IPRATROPIUM/ALBUTEROL 3 ML VIAL INH ONE (10:35)
[2017-10-10] MEDS ORDERED: BENZONATATE PERLES 100 MG CAP PO ONE (10:36)
[2017-10-10 10:57] VITALS: O2SAT 100
--- NOTE | 2017-10-10 10:59 | ED.PDOC ---
History of Present Illness - General Chief Complaint: Respiratory Problem Stated Complaint: cough x4 weeks Time Seen by Provider: 10/10/17 10:22 Source: patient Exam Limitations: no limitations - History of Present Illness Comments: PT REPORTS 4 WEEK HISTORY OF COUGH, PLEURITIC CHEST PAIN, AND SOB. PT DENIES FEVER OR CHILLS. PT REPORTS THIS IS THE FIRST TIME SHE IS SEEKING MEDICAL ATTENTION FOR THIS COUGH. PT REPORTS COUGHING FITS WITH NEAR SYNCOPAL EPISODES. Timing/Duration: getting worse Cough Quality/Degree: severe Possible Cause: no prior episodes Improving Factors: nothing Worsening Factors: nothing Associated Symptoms: chest pain/soreness, cough, dizziness, lightheadedness, shortness of breath, sore throat Allergies/Adverse Reactions: Allergies NO KNOWN ALLERGY Allergy (Verified 04/26/17 06:45) Home Medications: Ambulatory Orders Humalog See Protocol SUBCU DAILY 06/03/14 Albuterol Sulfate Nebs [Proventil Nebs] 2.5 mg INH Q4HR PRN #90 vial 10/10/17 Azithromycin Tab [Zithromax] 250 mg PO QD #4 tab 10/10/17 Benzonatate Perles [Tessalon Perles] 200 mg PO TID PRN #30 cap 10/10/17 Insulin Glargine [Lantus Solostar] 18 unit SC BEDTIME 10/10/17 Prednisone 50 mg PO DAILY 4 Days #4 tab 10/10/17 Review of Systems - Review of Systems Constitutional: Denies: chills, fever EENTM: Denies: double vision, nose congestion Respiratory: States: cough, short of breath Cardiology: States: chest pain. Denies: palpitations Gastrointestinal/Abdominal: Denies: nausea, vomiting Genitourinary: Denies: dysuria, frequency Musculoskeletal: Denies: joint pain, joint swelling Skin: Denies: dryness, lesions Neurological: Denies: headache, numbness Endocrine: States: no symptoms reported Hematologic/Lymphatic: States: no symptoms reported Past Medical History (General) - Patient Medical History Hx Seizures: No Hx Stroke: No Hx Dementia: No Hx Asthma: No Hx of COPD: No Hx Cardiac Disorders: No Hx Congestive Heart Failure: No Hx Pacemaker: No Hx Hypertension: No Hx Thyroid Disease: No Hx Diabetes: Yes Hx Gastroesophageal Reflux: No Hx Renal Disease: No Hx Cancer: No Hx of HIV: No Hx Hepatitis C: No Hx MRSA: No MRSA Source:: Wound Surgical History: other - Vaccination History Hx Tetanus, Diphtheria Vaccination: Yes Hx Influenza Vaccination: No Hx Pneumococcal Vaccination: No - Social History Hx Tobacco Use: No Hx Chewing Tobacco Use: No Hx Alcohol Use: No Hx Substance Use: No Hx Substance Use Treatment: No Hx Depression: No Hx Physical Abuse: No Hx Emotional Abuse: No Hx Suspected Abuse: No - Female History Patient is a Female of Child Bearing Age (10 -59 yrs old): Yes Hx Last Menstrual Period: 05/06/16 Patient : No Expected Date of Delivery:: 02/16/17 Hx Gestational Age: 11 Family Medical History - Family History Father Family History: Unknown Name: Guillermo Loja Age (years): 52 Living Status: Still Living Hx Family Asthma: Yes - Mother Hx Family Congestive Heart Failure: No Hx Family Hypertension: No Hx Family Stroke: No Hx Cardiac Disease: No Hx Family Diabetes: Yes - Pt. Hx Family Cancer: No Hx Family;Other: colon cancer-mom Physical Exam - Physical Exam General Appearance: Alert, Well Developed, Well Groomed, Well Hydrated Eye Exam: bilateral normal ENT Exam: normal ENT inspection, hearing grossly normal Neck: non-tender, full range of motion Respiratory: chest non-tender, no respiratory distress, other - COARSE BREATH SOUND BILATERALLY Cardiovascular/Chest: no murmur, tachycardia Gastrointestinal/Abdominal: non tender, soft Neurologic: alert, normal mood/affect, oriented x 3 Skin Exam: normal color, warm/dry Progress - Progress Progress: 10/10/17 11:38 PT REPORTS SIGNIFICANT IMPROVEMENT IN DYSPNEA AFTER DUONEB IN THE ED. LABS AND DIAGNOSTICS DISCUSSED. - Results/Orders Results/Orders: Laboratory Tests 10/10/17 10/10/17 10/10/17 11:05 11:05 11:05 WBC 10.3 RBC 4.61 Hgb 13.2 Hct 39.2 MCV 85.0 MCH 28.6 MCHC 33.6 RDW 13.4 Plt Count 301 MPV 8.6 Absolute Neuts (auto) 6.90 H Absolute Lymphs (auto) 2.40 Absolute Monos (auto) 0.50 Absolute Eos (auto) 0.40 Absolute Basos (auto) 0.10 Neutrophils % 67.4 Lymphocytes % 23.5 Monocytes % 5.0 Eosinophils % 3.6 Basophils % 0.5 D-Dimer, Quantitative < 230 Sodium 134 L Potassium 4.1 Chloride 102 Carbon Dioxide 23 Anion Gap 13.1 BUN 21 H Creatinine 0.80 BUN/Creatinine Ratio 26.3 H Random Glucose 305 H Serum Osmolality 282.7 Calcium 9.1 Total Bilirubin 0.3 AST 19 ALT 12 Alkaline Phosphatase 92 Serum Total Protein 7.6 Albumin 3.6 Globulin 4.0 H Albumin/Globulin Ratio 0.9 L Serum HCG, Qual 10/10/17 11:05 WBC RBC Hgb Hct MCV MCH MCHC RDW Plt Count MPV Absolute Neuts (auto) Absolute Lymphs (auto) Absolute Monos (auto) Absolute Eos (auto) Absolute Basos (auto) Neutrophils % Lymphocytes % Monocytes % Eosinophils % Basophils % D-Dimer, Quantitative Sodium Potassium Chloride Carbon Dioxide Anion Gap BUN Creatinine BUN/Creatinine Ratio Random Glucose Serum Osmolality Calcium Total Bilirubin AST ALT Alkaline Phosphatase Serum Total Protein Albumin Globulin Albumin/Globulin Ratio Serum HCG, Qual Negative - EKG/XRAY/CT EKG: Sinus - @93bpm, NL INTERVALS, NL AXIS, no ST T wave changes, Unchanged from - 04/26/17 XRAY: chest - NO ACUTE FINDINGS PER RAD Departure - Departure Clinical Impression: Acute bronchitis, Tobacco abuse Time of Disposition: 11:48 Disposition: Discharge to Home or Self Care Condition: Good Departure Forms: ED Discharge - Pt. Copy, Patient Portal Self Enrollment Instructions: DI for Acute Bronchitis Diet: resume usual diet Activity: increase activity as tolerated Referrals: [facility] [Provider Group] - 1-5 Days Prescriptions: Albuterol Sulfate Nebs [Proventil Nebs] 2.5 mg INH Q4HR PRN #90 vial PRN Reason: Shortness Of Breath/Wheezing Azithromycin Tab [Zithromax] 250 mg PO QD #4 tab Benzonatate Perles [Tessalon Perles] 200 mg PO TID PRN #30 cap PRN Reason: Cough Prednisone 50 mg PO DAILY 4 Days #4 tab Home Medications: Ambulatory Orders Humalog See Protocol SUBCU DAILY 06/03/14 Albuterol Sulfate Nebs [Proventil Nebs] 2.5 mg INH Q4HR PRN #90 vial 10/10/17 Azithromycin Tab [Zithromax] 250 mg PO QD #4 tab 10/10/17 Benzonatate Perles [Tessalon Perles] 200 mg PO TID PRN #30 cap 10/10/17 Insulin Glargine [Lantus Solostar] 18 unit SC BEDTIME 10/10/17 Prednisone 50 mg PO DAILY 4 Days #4 tab 10/10/17
--- NOTE | 2017-10-10 11:32 | RAD ---
EXAM DESCRIPTION: Chest,2 Views CLINICAL HISTORY: cough/sob COMPARISON: Chest x-ray 04/11/2007. TECHNIQUE: PA, lateral views. FINDINGS: Lungs: Well-inflated and no infiltrate. Pleural spaces: No effusion or pneumothorax bilaterally. Heart: Normal size. Pulmonary Vascularity: Not increased. Mediastinum: Not widened. Aorta: Unremarkable. Bony Thorax/Spine: No acute bony thoracic abnormalities. IMPRESSION: No radiographic evidence of acute cardiopulmonary disease. Stable since March 2007. Electronically signed by: Ramesh Nixon MD 10/10/2017 11:31 AM CDT
[2017-10-10] MEDS ORDERED: methylPREDNISolone SODIUM SUC 125 MG/2 ML VIAL IV ONE (11:37)
[2017-10-10] MEDS ORDERED: AZITHROMYCIN 250 MG TAB PO ONE (11:37)
[2017-10-10 12:21] VITALS: BP 106/77; TEMP 98.2
== END 2017-10-10 12:21 | disposition home or self-care (01) ==
LOC: ER 09:47
DX: J20.9 Acute bronchitis, unspecified (principal); F17.200 Nicotine dependence, unspecified, uncomplicated; E11.9 Type 2 diabetes mellitus without complications; Z79.4 Long term (current) use of insulin
CPT/HCPCS: 36415; 71046; 80053; 84703; 85025; 85379; 87040; 93005; 94640; 94760; J2930; J7620; Q0144

== ENCOUNTER 2017-12-13 08:45 | Emergency (ER) | payer OTHER ==
--- NOTE | 2017-12-13 09:34 | ED.PDOC ---
History of Present Illness - General Chief Complaint: Headache Time Seen by Provider: 12/13/17 09:31 Source: patient Exam Limitations: no limitations - History of Present Illness Initial Comments: 3 D GARCIA, NAUSEA, WEAKNESS, DECR PO, LEG CRAMPS, LIGHT HEADED WHEN WALKS. EMESIS IF EATS; IS ABLE TO DRINK SMALL AMOUNTS. HEAVY PERIOD X 2 D. NO ABD PAIN. BS 565 LAST NOC. 90 THIS AM. HAS IDDM TYPE 1. GARCIA SIMILAR TO OTHER MIGRAINES. MORE FRONTAL, BL TODAY. Timing/Duration: waxing and waning Quality: moderate, pressure Recent Head Trauma: chronic headaches Improving Factors: nothing Worsening Factors: nothing Associated Symptoms: fatigue, nausea/vomiting Allergies/Adverse Reactions: Allergies NO KNOWN ALLERGY Allergy (Verified 04/26/17 06:45) Home Medications: Ambulatory Orders Humalog See Protocol SUBCU DAILY 06/03/14 Insulin Glargine [Lantus Solostar] 18 unit SC BEDTIME 10/10/17 Ondansetron [Zofran Odt] 4 mg SL TID PRN #20 tab 12/13/17 Sulfa/Trimeth 800/160 (Ds) Tab [Bactrim DS Tab] 1 unit PO BID #6 tab 12/13/17 Review of Systems - Review of Systems Constitutional: States: weakness. Denies: chills, fever EENTM: Denies: ear pain, nose congestion Respiratory: Denies: cough, short of breath Cardiology: Denies: chest pain, palpitations Gastrointestinal/Abdominal: States: nausea, vomiting - IF TRIES TO EAT. IS ABLE TO DRINK. . Denies: abdominal pain, constipation, diarrhea Genitourinary: Denies: dysuria, frequency Musculoskeletal: Denies: back pain, joint pain, neck pain Skin: Denies: lesions, rash Neurological: States: headache - BL FRONTAL. NOT "THUNDERCLAP". NOT "WORST GARCIA OF MY LIFE.", weakness. Denies: paresthesia, pre-existing deficit, tingling Endocrine: Denies: excessive sweating, flushing, increased urine, unexplained weight gain, unexplained weight loss Hematologic/Lymphatic: Denies: easy bleeding, easy bruising All other Systems: Reviewed and Negative Past Medical History (General) - Patient Medical History Hx Seizures: No Hx Stroke: No Hx Dementia: No Hx Asthma: No Hx of COPD: No Hx Cardiac Disorders: No Hx Congestive Heart Failure: No Hx Pacemaker: No Hx Hypertension: Yes Hx Thyroid Disease: No Hx Diabetes: Yes - IDDM TYPE 1 Hx Gastroesophageal Reflux: No Hx Renal Disease: No Hx Cancer: No Hx of HIV: No Hx Hepatitis C: No Hx MRSA: No MRSA Source:: Wound Surgical History: cholecystectomy - Vaccination History Hx Tetanus, Diphtheria Vaccination: No Hx Influenza Vaccination: No Hx Pneumococcal Vaccination: No Immunizations Up to Date: No - Social History Hx Tobacco Use: No Hx Chewing Tobacco Use: No Hx Alcohol Use: No Hx Substance Use: No Hx Substance Use Treatment: No Hx Depression: No Feels Threatened In Home Enviroment: No Feels Threatened In a Relationship: No Hx Physical Abuse: No Hx Emotional Abuse: No Hx Suspected Abuse: No - Female History Patient is a Female of Child Bearing Age (10 -59 yrs old): Yes Hx Last Menstrual Period: 05/06/16 Patient : Yes Expected Date of Delivery:: 02/16/17 Hx Gestational Age: 11 Family Medical History - Family History Father Family History: Unknown Name: Guillermo Loja Age (years): 52 Living Status: Still Living Hx Family Asthma: Yes - Mother Hx Family Congestive Heart Failure: No Hx Family Hypertension: No Hx Family Stroke: No Hx Cardiac Disease: No Hx Family Diabetes: Yes - Pt. Hx Family Cancer: No Hx Family;Other: colon cancer-mom Physical Exam - Physical Exam General Appearance: Alert, Well Nourished Eyes, Ears, Nose, Throat Exam: normal ENT inspection, pharynx normal Neck: non-tender, full range of motion, supple, normal inspection Cardiovascular/Chest: normal peripheral pulses, regular rate, rhythm, no edema, no murmur Respiratory: lungs clear, normal breath sounds, no respiratory distress Gastrointestinal/Abdominal: normal bowel sounds, non tender, soft, no organomegaly, no pulsatile mass Back Exam: normal inspection, no CVA tenderness Extremity: normal range of motion, non-tender, normal inspection 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 PULSE INCREASED BY 21 BPM. UTI - POS BACTERIA, LEUK EST, WBC. BLOOD - HAVING MENSES. ROCEPHIN IN ER. RX' D BACTRIM. UA - POS KETONURIA BUT NORMAL ANION GAP OF 10 AND NL BS OF 130, THUS IS NOT IN DKA. Na 133 ELEV BUN PRETTY SIGNIFICANT DEHYDRATION, THUS GIVING 2ND L BOLUS. 12/13/17 10:41 You have a urinary tract infection resulting in the nausea and loss of appetite. This resulted in an elevated blood sugar last night, which along with blood loss from a heavy period resulted in significant dehydration. This resulted in your headache, weakness, light-headedness, and other lab findings. Please try to drink 64 oz of water per day but increase to 100 oz per day during your periods. Zofran is for nausea. Bactrim is for the UTI. 12/13/17 11:19 MIGRAINE GARCIA - GARCIA NOT RESOLVED WITH 1ST BOLUS AND GARCIA MEDS. THUS GIVING 2ND BOLUS AND DIFFERENT MEDS. 12/13/17 12:46 PT GARCIA BETTER AFTER 2ND BOLUS. SAFE FOR DC TO HOME. Departure - Departure Clinical Impression: Migraine, Orthostatic hypotension, Dehydration, Menorrhagia with regular cycle , Light headedness, Generalized weakness, DM type 1 (diabetes mellitus, type 1) , Nausea & vomiting, Low grade fever, Neutrophilic leukocytosis, Mild anemia, UTI (urinary tract infection), Proteinuria, Ketonuria, Hyponatremia, Elevated BUN Disposition: Discharge to Home or Self Care Condition: Good Departure Forms: ED Discharge - Pt. Copy, Patient Portal Self Enrollment Instructions: DI for Headache, Dehydration, Adult (DC), Urinary Tract Infection , Adult (DC) Diet: other - ADVANCE YOUR DIET TOLERATED. DRINK AT LEAST 64 OZ OF WATER PER DAY. Activity: increase activity as tolerated Referrals: Herminio Khan MD [Primary Care Provider] - 1-2 Weeks Prescriptions: Ondansetron [Zofran Odt] 4 mg SL TID PRN #20 tab PRN Reason: Nausea Sulfa/Trimeth 800/160 (Ds) Tab [Bactrim DS Tab] 1 unit PO BID #6 tab Home Medications: Ambulatory Orders Humalog See Protocol SUBCU DAILY 06/03/14 Insulin Glargine [Lantus Solostar] 18 unit SC BEDTIME 10/10/17 Ondansetron [Zofran Odt] 4 mg SL TID PRN #20 tab 12/13/17 Sulfa/Trimeth 800/160 (Ds) Tab [Bactrim DS Tab] 1 unit PO BID #6 tab 12/13/17 Additional Instructions: You have a urinary tract infection resulting in the nausea and loss of appetite. This resulted in an elevated blood sugar, which along with blood loss from a heavy period resulted in significant dehydration. This resulted in your headache, weakness, and light-headedness. Please try to drink 64 oz of water per day but increase to 100 oz per day during your periods. Zofran is for nausea. Bactrim is for the UTI.
[2017-12-13] MEDS ORDERED: SODIUM CHLORIDE 0.9% 1000ML 1,000 ML IVS ONE ×2 (09:52→10:59)
[2017-12-13] MEDS ORDERED: KETOROLAC TROMETHAMINE INJ 30 MG/ML VIAL IV ONE (09:53)
[2017-12-13] MEDS ORDERED: METOCLOPRAMIDE HCL INJ 10 MG/2 ML VIAL IV ONE (09:53)
[2017-12-13] MEDS ORDERED: diphenhydrAMINE HCL 50 MG/ML VIAL IV ONE (09:58)
[2017-12-13] MEDS ORDERED: cefTRIAXone SODIUM 1 GM in SODIUM CHL 0.9% 50ML MIN-BAG+ 50 ML IVPB ONE (10:47)
[2017-12-13] MEDS ORDERED: cefTRIAXone SODIUM 1 GM VIAL ONE (10:58)
[2017-12-13] MEDS ORDERED: SODIUM CHL 0.9% 50ML MIN-BAG+ 50 ML IVPB ONE (10:58)
[2017-12-13] MEDS ORDERED: CAFFEINE IV ONE (11:23)
[2017-12-13] MEDS ORDERED: SODIUM BENZOATE IV ONE (11:23)
[2017-12-13] MEDS ORDERED: SUMAtriptan SUCCINATE INJ 6 MG/0.5 ML VIAL SUBCU ONE (11:24)
[2017-12-13 13:04] VITALS: BP 109/71; TEMP 97.6; O2SAT 99
== END 2017-12-13 13:00 | disposition home or self-care (01) ==
LOC: ER 08:45
DX: G43.909 Migraine, unspecified, not intractable, without status migrainosus (principal); E86.0 Dehydration; I95.1 Orthostatic hypotension; N92.0 Excessive and frequent menstruation with regular cycle; R42 Dizziness and giddiness; R53.1 Weakness; E10.9 Type 1 diabetes mellitus without complications; R50.81 Fever presenting with conditions classified elsewhere; D64.9 Anemia, unspecified; D72.828 Other elevated white blood cell count; N39.0 Urinary tract infection, site not specified; R80.9 Proteinuria, unspecified; R82.4 Acetonuria; R79.89 Other specified abnormal findings of blood chemistry; R11.2 Nausea with vomiting, unspecified; Z79.4 Long term (current) use of insulin; Z79.899 Other long term (current) drug therapy
CPT/HCPCS: 36415; 80053; 81001; 85025; 87086; 87186; J0696; J1200; J1885; J2765; J3030; J7030; J7050

== ENCOUNTER 2018-09-12 16:46 | Emergency (ER) | payer SELFPAY ==
[2018-09-12] MEDS ORDERED: ACETAMINOPHEN 325 MG TAB PO ONE (17:03)
[2018-09-12] MEDS ORDERED: KETOROLAC TROMETHAMINE INJ 30 MG/ML VIAL IV ONE (17:03)
--- NOTE | 2018-09-12 17:17 | ED.PDOC ---
History of Present Illness - General Chief Complaint: General Stated Complaint: Neuropathy type pain Time Seen by Provider: 09/12/18 16:55 Source: patient Exam Limitations: no limitations - History of Present Illness Initial Comments: PT'S PRIMARY COMPLAINT IS BACK PAIN. MID THORACIC, FEELS SHARP SIMILAR TO NEUROPATHIC PAIN. NO HX TRAUMA. WORSE WITH MOVEMENT BUT IS NOT PLEURITIC. NO RADIATION. Severity: moderate Improving Factors: nothing Worsening Factors: movement Associated Symptoms: fever/chills Allergies/Adverse Reactions: Allergies NO KNOWN ALLERGY Allergy (Verified 09/12/18 17:46) Home Medications: Ambulatory Orders Humalog See Protocol SUBCU DAILY 06/03/14 Insulin Glargine [Lantus Solostar] 22 unit SC BEDTIME 10/10/17 Amoxicillin & Pot Clavulanate [Augmentin] 1 tab PO BID #20 tab 09/12/18 Indomethacin 50 mg PO TID PRN #14 cap 09/12/18 Review of Systems - Review of Systems Constitutional: States: chills, fever EENTM: States: mouth pain. Denies: ear pain, throat pain Respiratory: Denies: cough, short of breath Cardiology: Denies: chest pain, palpitations Gastrointestinal/Abdominal: Denies: nausea, vomiting Genitourinary: Denies: dysuria, hematuria Musculoskeletal: States: back pain. Denies: neck pain Skin: States: no symptoms reported Neurological: States: no symptoms reported Endocrine: States: no symptoms reported Hematologic/Lymphatic: States: no symptoms reported Past Medical History (General) - Patient Medical History Hx Seizures: No Hx Stroke: No Hx Dementia: No Hx Asthma: No Hx of COPD: No Hx Cardiac Disorders: No Hx Congestive Heart Failure: No Hx Pacemaker: No Hx Hypertension: Yes Hx Thyroid Disease: No Hx Diabetes: Yes - IDDM TYPE 1 Hx Gastroesophageal Reflux: No Hx Renal Disease: No Hx Cancer: No Hx of HIV: No Hx Hepatitis C: No Hx MRSA: No MRSA Source:: Wound - Vaccination History Hx Tetanus, Diphtheria Vaccination: No Hx Influenza Vaccination: No Hx Pneumococcal Vaccination: No - Social History Hx Tobacco Use: No Hx Chewing Tobacco Use: No Hx Alcohol Use: No Hx Substance Use: No Hx Substance Use Treatment: No Hx Depression: No Hx Physical Abuse: No Hx Emotional Abuse: No Hx Suspected Abuse: No - Female History Hx Last Menstrual Period: 05/06/16 Patient : Yes Expected Date of Delivery:: 02/16/17 Hx Gestational Age: 11 Family Medical History - Family History Father Family History: Unknown Name: Guillermo Loja Age (years): 52 Living Status: Still Living Hx Family Asthma: Yes - Mother Hx Family Congestive Heart Failure: No Hx Family Hypertension: No Hx Family Stroke: No Hx Cardiac Disease: No Hx Family Diabetes: Yes - Pt. Hx Family Cancer: No Hx Family;Other: colon cancer-mom Physical Exam - Physical Exam General Appearance: Alert, No apparent distress Eye Exam: bilateral normal Ears, Nose, Throat: normal ENT inspection, normal pharynx, other - TM'S NL, DRY MM Neck: non-tender, supple, normal inspection Respiratory: lungs clear, no respiratory distress Cardiovascular/Chest: regular rate, rhythm, no murmur Gastrointestinal/Abdominal: non tender, soft, no organomegaly Extremity: normal range of motion, non-tender, normal inspection Neurologic: no motor/sensory deficits, alert Skin Exam: normal color, warm/dry Lymphatic: no adenopathy Progress - Progress Progress: 09/12/18 17:57 FEELS BETTER. BACK IS NL, NO RASH NO LESIONS, NO MIDLINE/CVA TTP. IS DIAPHORETIC. 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 Copy, Patient Portal Self Enrollment Instructions: Diabetes Type 1, Adult (DC), Muscle and Bone Pain (DC) Referrals: Herminio Khan MD [Primary Care Provider] - 1-2 Weeks Prescriptions: Amoxicillin & Pot Clavulanate [Augmentin] 1 tab PO BID #20 tab Indomethacin 50 mg PO TID PRN #14 cap PRN Reason: Pain Home Medications: Ambulatory Orders Humalog See Protocol SUBCU DAILY 06/03/14 Insulin Glargine [Lantus Solostar] 22 unit SC BEDTIME 10/10/17 Amoxicillin & Pot Clavulanate [Augmentin] 1 tab PO BID #20 tab 09/12/18 Indomethacin 50 mg PO TID PRN #14 cap 09/12/18
[2018-09-12] MEDS ORDERED: SODIUM CHLORIDE 0.9% 1000ML 1,000 ML IVS ONE (17:20)
--- NOTE | 2018-09-12 17:23 | RAD ---
EXAM DESCRIPTION: Chest,2 Views CLINICAL HISTORY: BACK PAIN, FEVER COMPARISON: October 10, 2017 TECHNIQUE: PA/lateral FINDINGS: The lungs are well expanded and clear. No infiltrates or effusions or masses are noted. The heart is normal in size and shape with no evidence of vascular congestion. The rylie and mediastinum demonstrate normal contours. The bony spine and chest wall is normal for age in appearance. IMPRESSION: Normal chest, two views Electronically signed by: Herminio Alexandra MD 09/12/2018 5:20 PM CDT
[2018-09-12 18:17] VITALS: O2SAT 97
[2018-09-12] MEDS ORDERED: cefTRIAXone SODIUM 1 GM in SODIUM CHL 0.9% 50ML MIN-BAG+ 50 ML IVPB ONE (19:40)
[2018-09-12] MEDS ORDERED: cefTRIAXone SODIUM 1 GM VIAL ONE (20:06)
[2018-09-12] MEDS ORDERED: SODIUM CHL 0.9% 50ML MIN-BAG+ 50 ML IVPB ONE (20:07)
[2018-09-12 20:33] VITALS: BP 121/74; TEMP 98
== END 2018-09-12 20:25 | disposition home or self-care (01) ==
LOC: ER 16:46
DX: M54.6 Pain in thoracic spine (principal); R50.9 Fever, unspecified; E10.9 Type 1 diabetes mellitus without complications; I10 Essential (primary) hypertension; Z79.4 Long term (current) use of insulin; Z79.899 Other long term (current) drug therapy
CPT/HCPCS: 36415; 71046; 80053; 81001; 82948; 85025; 87040; 87086; J1885; J7030

== ENCOUNTER 2018-09-14 22:04 | Emergency (ER) | payer SELFPAY ==
[2018-09-14 22:42] VITALS: BP 151/95; TEMP 102.4; O2SAT 98
--- NOTE | 2018-09-14 22:59 | RAD ---
EXAM: XR Chest, 1 View CLINICAL HISTORY: The patient is 28 years old and is Female; manzano, congestion TECHNIQUE: Frontal view of the chest. COMPARISON: Chest radiograph from 09/12/2018 FINDINGS: LUNGS: The lungs are mildly hypoinflated. There is mild ill-defined increased density projecting over the lower lungs, which is favored to represent artifact related to overlying soft tissue. No focal consolidation visualized. PLEURAL SPACE: Unremarkable. No pneumothorax. HEART: No significant enlargement of the cardiac silhouette. MEDIASTINUM: Unremarkable. BONES/JOINTS: No acute osseous findings. IMPRESSION: Low lung volumes. No focal consolidation visualized. Electronically signed by: Palak Rdz MD 09/14/2018 10:57 PM CDT
--- NOTE | 2018-09-14 23:00 | CT ---
EXAM: CT Maxillofacial Sinuses Without Intravenous Contrast CLINICAL HISTORY: The patient is 28 years old and is Female; body aches TECHNIQUE: Computed tomography images of the maxillofacial sinuses without intravenous contrast. Sagittal and coronal reformatted images were created and reviewed. This CT exam was performed using one or more of the following dose reduction techniques: automated exposure control, adjustment of the mA and/or kV according to patient size, and/or use of iterative reconstruction technique. COMPARISON: No relevant prior studies available. FINDINGS: MAXILLARY SINUSES: Unremarkable. No air-fluid levels. SPHENOID SINUSES: Unremarkable. No air-fluid levels. FRONTAL SINUSES: Unremarkable. No air-fluid levels. ETHMOID AIR CELLS: Unremarkable. No air-fluid levels. NASAL CAVITY/SEPTUM: No acute findings. BONES/JOINTS: No acute fracture. SOFT TISSUES: The soft tissues are normal. IMPRESSION: Unremarkable noncontrasted CT of the sinuses Electronically signed by: Joy Terry MD 09/14/2018 10:58 PM CDT
--- NOTE | 2018-09-14 23:06 | ED.PDOC ---
History of Present Illness - General Chief Complaint: General Stated Complaint: GARCIA, fever, body aches , back pain. Time Seen by Provider: 09/14/18 22:25 Source: patient Exam Limitations: no limitations - History of Present Illness Initial Comments: Yohana Echevarria 28 y/o female came to ER with fever ,headache,N/V today.Seen September 12 here in ER was dx with uti and possible pna prescribed antibiotics but did not pick it up until today.Has Hx of DM1 compliant with insulin regimen.Denies dysuria,cough,had one episode of n/v no chills no abdominal pain. Timing/Duration: 24 hours Severity: moderate Improving Factors: nothing Worsening Factors: nothing Associated Symptoms: other - see hpi Allergies/Adverse Reactions: Allergies NO KNOWN ALLERGY Allergy (Verified 09/12/18 17:46) Home Medications: Ambulatory Orders Humalog See Protocol SUBCU DAILY 06/03/14 Insulin Glargine [Lantus Solostar] 22 unit SC BEDTIME 10/10/17 Amoxicillin & Pot Clavulanate [Augmentin] 1 tab PO BID #20 tab 09/12/18 Indomethacin 50 mg PO TID PRN #14 cap 09/12/18 Review of Systems - Review of Systems Constitutional: States: see HPI, fever EENTM: States: no symptoms reported Respiratory: States: no symptoms reported Cardiology: States: no symptoms reported Gastrointestinal/Abdominal: States: no symptoms reported Genitourinary: States: no symptoms reported Musculoskeletal: States: no symptoms reported Skin: States: no symptoms reported Neurological: States: no symptoms reported Past Medical History (General) - Patient Medical History Hx Seizures: No Hx Stroke: No Hx Dementia: No Hx Asthma: No Hx of COPD: No Hx Cardiac Disorders: No Hx Congestive Heart Failure: No Hx Pacemaker: No Hx Hypertension: Yes Hx Thyroid Disease: No Hx Diabetes: Yes - IDDM TYPE 1 Hx Gastroesophageal Reflux: No Hx Renal Disease: No Hx Cancer: No Hx of HIV: No Hx Hepatitis C: No Hx MRSA: No Hx Other PMH: Yes - migraines MRSA Source:: Wound Surgical History: cholecystectomy, other - ,retina surgery-detachment - Vaccination History Hx Tetanus, Diphtheria Vaccination: No Hx Influenza Vaccination: No Hx Pneumococcal Vaccination: No - Social History Hx Tobacco Use: Yes Hx Chewing Tobacco Use: No Hx Alcohol Use: No Hx Substance Use: No Hx Substance Use Treatment: No Hx Depression: No Hx Physical Abuse: No Hx Emotional Abuse: No Hx Suspected Abuse: No - Female History Hx Last Menstrual Period: 09/08/18 Patient : No Hx Gestational Age: 11 Family Medical History - Family History Father Family History: Unknown Name: Guillermo Loja Age (years): 52 Living Status: Still Living Hx Family Asthma: Yes - Mother Hx Family Congestive Heart Failure: No Hx Family Hypertension: No Hx Family Stroke: No Hx Cardiac Disease: No Hx Family Diabetes: Yes - Pt. Hx Family Cancer: No Hx Family;Other: colon cancer-mom Physical Exam - Physical Exam General Appearance: Alert, Comfortable, No apparent distress Eye Exam: bilateral normal Ears, Nose, Throat: hearing grossly normal, normal ENT inspection, normal pharynx Neck: full range of motion, supple, normal inspection Respiratory: chest non-tender, lungs clear, normal breath sounds, no respiratory distress Cardiovascular/Chest: normal peripheral pulses, regular rate, rhythm, no murmur Peripheral Pulses: radial,right: 2+, radial,left: 2+ Gastrointestinal/Abdominal: non tender, soft, no organomegaly Back Exam: no CVA tenderness, no vertebral tenderness Neurologic: alert, oriented x 3 Skin Exam: normal color, warm/dry Lymphatic: no adenopathy Progress - Progress Progress: 09/14/18 23:16 Vital Signs - 8 hr 09/14/18 22:17 Temperature 102.4 F H Pulse Rate [ 123 H left] Respiratory 22 Rate Blood Pressure 151/95 [left] O2 Sat by Pulse 98 Oximetry - Results/Orders Results/Orders: 09/14/18 22:25 IV Care:Saline Lock per Protoc QSHIFT 09/14/18 22:30 URINALYSIS Stat Laboratory Results - last 24 hr 09/14/18 09/14/18 09/14/18 22:30 22:35 22:35 WBC 14.3 H RBC 3.97 L Hgb 11.3 L Hct 35.5 L MCV 89.5 MCH 28.5 MCHC 31.8 L RDW 14.1 Plt Count 301 MPV 8.2 Absolute Neuts (auto) 11.20 H Absolute Lymphs (auto) 1.90 Absolute Monos (auto) 1.00 H Absolute Eos (auto) 0.10 Absolute Basos (auto) 0.10 Neutrophils % 78.1 H Lymphocytes % 13.0 L Monocytes % 7.3 Eosinophils % 1.0 Basophils % 0.6 Sodium 128 L Potassium 4.4 Chloride 93 L Carbon Dioxide 16 L Anion Gap 23.4 H BUN 23 H Creatinine 1.13 BUN/Creatinine Ratio 20.4 H Random Glucose 361 H D Serum Osmolality 275.3 Calcium 9.1 Total Bilirubin 1.2 H D AST 13 ALT 14 Alkaline Phosphatase 126 H D Serum Total Protein 8.0 Albumin 3.5 Globulin 4.5 H Albumin/Globulin Ratio 0.8 L Group A Strep Rapid Positive - EKG/XRAY/CT XRAY: chest - no acute findings CT Ordered: Yes - sinus -no acute findings Departure - Departure Clinical Impression: Strep throat Fever Qualifiers: Fever type: due to other condition Qualified Code(s): R50.81 - Fever presenting with conditions classified elsewhere Time of Disposition: 23:18 Disposition: Discharge to Home or Self Care Condition: Fair Departure Forms: ED Discharge - Pt. Copy, Patient Portal Self Enrollment Instructions: Strep Throat (DC) Referrals: Herminio Khan MD [Primary Care Provider] - 1-2 Weeks Home Medications: Ambulatory Orders Humalog See Protocol SUBCU DAILY 06/03/14 Insulin Glargine [Lantus Solostar] 22 unit SC BEDTIME 10/10/17 Amoxicillin & Pot Clavulanate [Augmentin] 1 tab PO BID #20 tab 09/12/18 Indomethacin 50 mg PO TID PRN #14 cap 09/12/18 Additional Instructions: Need to parts picker your antibiotic prescription;Take Tylenol 500 mg every 6 hours for fever;Return to ER as needed;follow up with primary Md 18 September 2018 for recheck
[2018-09-14] MEDS: SODIUM CHLORIDE 0.9% 500ML 500 ML IVS ONE (23:08)
[2018-09-14] MEDS ORDERED: LIDOCAINE 1% 2 ML VIAL INJ ONE (23:09)
[2018-09-14] MEDS: PROMETHAZINE HCL INJ 25 MG/ML VIAL IM ONE (23:15)
[2018-09-14] MEDS: ACETAMINOPHEN 500 MG TAB PO ONE (23:15)
[2018-09-14] MEDS: HYDROcodone 10MG/APAP 325MG 1 EA TAB PO ONE (23:15)
[2018-09-14] MEDS: cefTRIAXone SODIUM 1 GM VIAL IM ONE (23:16)
[2018-09-14] MEDS: HYDROCOD/APAP 5/325 (ER DISP) #3 TAB PO ONE (23:26)
[2018-09-14] MEDS: PROMETHAZINE TAB (ER DISP) 25 MG TAB PO ONE (23:27)
== END 2018-09-14 23:35 | disposition home or self-care (01) ==
LOC: ER 22:04
DX: J02.0 Streptococcal pharyngitis (principal); E10.9 Type 1 diabetes mellitus without complications; R51 Headache; I10 Essential (primary) hypertension; Z87.891 Personal history of nicotine dependence; Z79.4 Long term (current) use of insulin; Z79.899 Other long term (current) drug therapy
CPT/HCPCS: 36415; 70486; 71045; 80053; 81001; 85025; 87077; 87086; 87186; 87502; 87880; J0696; J2550; Q0169